=== PATIENT | female | born 1995 | race Two or more races ===

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

== ENCOUNTER 2017-03-27 11:38 | Emergency (ER) | payer SELFPAY ==
[2017-03-27 11:41] VITALS: BP 127/70
[2017-03-27 13:09] LABS: BILIRUBIN,URINE NEGATIVE (NEGATIVE); BLOOD/HEMOGLOBIN,URINE 3+ (NEGATIVE); GLUCOSE, URINE NEGATIVE (NEGATIVE); KETONES,URINE NEGATIVE (NEGATIVE); LEUKOCYTE ESTERASE ,URINE 3+ (NEGATIVE); NITRITES,URINE NEGATIVE (NEGATIVE); PROTEIN,URINE 3+ (NEGATIVE); UROBILINOGEN,URINE NORMAL (NORMAL)
[2017-03-27 13:19] LABS: APPEARANCE,URINE HAZY (CLEAR); COLOR,URINE YELLOW (YELLOW)
[2017-03-27 13:20] LABS: AMORPHOUS SEDIMENT,UR TRACE /HPF (NEGATIVE); BACTERIA,URINE NEGATIVE /HPF (NEGATIVE); MUCUS,URINE FEW /HPF (NEGATIVE); SQUAMOUS EPITHELIAL CELL,UR FEW /HPF (NEGATIVE)
--- NOTE | 2017-03-27 13:34 | DR.URINEF ---
HPI - Time Seen Time seen: 13:30 - PCP Primary Care Physician: DENIS - HPI Comment HPI Comment: SUPRAPUBIC PAIN DOWN LOWER ABDOMEN ASSOCIATED WITH DYSURIA AND FREQUENCY. NO FEVER. - Complaint Chief Complaint Doctors Comments: LOWER ABDOMINAL PAIN AND DYSURIA TODAY. Chief Complaint:: PT. C/O LOWER ABDOMINAL PAIN AND DYSURIA. - Reviewed Nurses Notes Reviewed: Yes - Source History Provided: Patient - Mode of Arrival Mode of Arrival: Ambulatory - Timing Onset of Chief Complaint: 03/27/17 - Duration Duration: Constant Duration: Hours Min/Hrs: Hours - Context Onset: Spontaneous History of: None - Quality Pain is: Sharp - Severity Pain: Moderate Inability to Void: Complete - Location Pain Location: Suprapubic, Abdomen - Associated Signs and Symptoms Associated signs and symptoms: Abdominal Pain, Flank Pain, Back Pain PMH - PMH Past Medical History: No Past Surgical History: No Surgical History: No History - Family History History of Family Medical Conditions: Yes Family Medical History: Diabetes Mellitus - Social History Does patient currently use any type of tobacco product: Yes Have you used tobacco products in the last 12 months: Yes Type of Tobacco Use: Cigarettes Does any household member use tobacco: No Alcohol Use: None Do you use any recreational Drugs:: No Lives With: Significant Other Lives Where: Home - infectious screening In the last 2 months have you had wt loss of >10#?: NO Have you had fever, night sweats or hemotysis?: No Have you traveled outside the country in the last 6 months?: No Isolation: Standard ROS - Review of Systems Constitutional: No Symptoms Reported Eyes: No Symptoms Reported ENTM: No Symptoms Reported Respiratoy: No Symptoms Reported Cardiovascular: No Symptoms Reported Gastrointestinal/Abdominal: Abdominal Pain Genitourinary: Dysuria, Frequency. negative: Hematuria Neurological: No Symptoms Reported Musculoskeletal: No Symptoms Reported Integumentary: No Symptoms Reported Hematologic/Lymphatic: No Symptoms Reported Endocrine: No Symptoms Reported All Other Systems: Reviewed and Negative PE - Vital Signs Vitals: Temperature 98.1 F Pulse Rate 76 Respiratory Rate 17 Blood Pressure 127/70 O2 Sat by Pulse Oximetry 98 - General Limitations: No Limitations General Appearance: Alert - Head Head Exam: Normal Inspection - Eyes Eye exam: Normal Appearance - ENT ENT Exam: Normal External Ear Exam - Neck Neck Exam: Trachea Midline - Chest Chest Inspection: Symmetric Chest Wall Rise - Respiratory Respiratory Exam: Normal Lung Sounds Bilat Respiratory Exam: Bilateral Clear to Auscultation - Cardiovascular Cardiovascular Exam: Regular Rate, Normal Rhythm, Normal Heart Sounds - Abdominal Exam Abdominal Exam: Normal Bowel Sounds, Soft, Tenderness Abdominal Tenderness: RLQ, LLQ, Suprapubic, Moderate - Rectal Rectal Exam: Deferred - Genitourinary External Exam: Female: Deferred : Bimanual Exam (female): Deferred - Extremities Extremities Exam: Normal Inspection - Back Back Exam: Normal Inspection - Neurologic Neurological Exam: Alert, Oriented X3 - Psychiatric Psychiatric Exam: Normal Affect, Normal Mood - Skin Skin Exam: Normal Color MDM - Differential Diagnosis Differential Diagnosis: Pyelonephritis, Urolithiasis, UTI Course - Treatment Treatment: SEE ORDERS - Education/Counseling Education/Counseling: Patient, Education Educated On: Diagnosis, Needs for Follow Up ROR - Labs Reviewed Laboratory Results Reviewed?: Yes Laboratory: Specimen Type Clean catch urine 03/27/17 13:03 Urine Color Yellow (YELLOW) 03/27/17 13:03 Urine Appearance Hazy (CLEAR) 03/27/17 13:03 Urine pH 8.0 (5.0 - 8.0) 03/27/17 13:03 Ur Specific [place] 1.015 (1.000-1.030) 03/27/17 13:03 Urine Protein 3+ (NEGATIVE) 03/27/17 13:03 Urine Glucose (UA) Negative (NEGATIVE) 03/27/17 13:03 Urine Ketones Negative (NEGATIVE) 03/27/17 13:03 Urine Occult Blood 3+ (NEGATIVE) 03/27/17 13:03 Urine Nitrite Negative (NEGATIVE) 03/27/17 13:03 Urine Bilirubin Negative (NEGATIVE) 03/27/17 13:03 Urine Urobilinogen Normal (NORMAL) 03/27/17 13:03 Ur Leukocyte Esterase 3+ (NEGATIVE) 03/27/17 13:03 Urine RBC 5-7 /HPF (NEGATIVE) 03/27/17 13:03 Urine WBC 25-30 /HPF (NEGATIVE) 03/27/17 13:03 Ur Squamous Epith Cells Few /HPF (NEGATIVE) 03/27/17 13:03 Amorphous Sediment Trace /HPF (NEGATIVE) 03/27/17 13:03 Urine Bacteria Negative /HPF (NEGATIVE) 03/27/17 13:03 Urine Mucus Few /HPF (NEGATIVE) 03/27/17 13:03 Ur Culture Indicated? No/not indicated 03/27/17 13:03 - Diagnosis Discharge Problem: UTI (urinary tract infection) Qualifiers: Urinary tract infection type: acute cystitis Hematuria presence: without hematuria Qualified Code(s): N30.00 - Acute cystitis without hematuria - Discharge Plan Disposition: 01 HOME, SELF-CARE Condition: Stable Prescriptions: Sulfamethoxazole-Trimethoprim [BACTRIM DS TAB 800/160 MG *] 1 tab PO BID #20 tab - Follow ups/Referrals Follow ups/Referrals: NFD,None [Primary Care Provider] - 3 days - Instructions Instructions: Urinary Tract Infection, Adult, [id number] Additional Instructions: RETURN TO ED IF WORSE.
== END 2017-03-27 13:43 | disposition home or self-care (01) ==
LOC: ER 11:46
DX: N30.00 Acute cystitis without hematuria (principal)
CPT/HCPCS: 81001; 99282